=== PATIENT | female | born 1950 | race Caucasian/White ===

== ENCOUNTER 2020-07-21 23:56 | Inpatient (IN) | payer OTHER ==
[~2020-07-21] VITALS: Ht 165.1 cm; Wt 59.9 kg
--- NOTE | ~2020-07-21 | EMS ---
[address] [address] EMS Patient Care Report Name: ROZINA DSOUZA Room #: 216-P ADM IN M.R.#: [id number] Admission: 07/22/20 Attend Phys: Aj Mills MD Discharge: Date of : 46 Report #: [id number] THIS REPORT FOR: //name// Report Transmitted: 07/23/2020 15:30 EMS Care Summary [facility] MED-ACT Incident [id number] @ 07/21/2020 22:58 Incident Location [id number] [place] [address] Patient ROZINA DSOUZA Female, 70 Years 1950 Patient Address [id number] [place] [address] Patient History Other,Dementia, Patient Allergies No known allergies, Patient Medications Allopurinol, Lisinopril, Hydrochlorothiazide (Hctz), Naproxen, Simvastatin, Chief Complaint "She's not acting like herself." Disposition Transported No Lights/[place] Dispatch Reason Psychiatric Problem/Abnormal Behavior/Suicide Attempt Transported To [facility] Narrative Upon arrival to scene we find pt lying in bed showing no outward signs of distress with no obvious ABC deficits. Pt's family reports that, approximately one hour prior to EMS call, pt began exhibiting erratic behavior and not responding to them. Family reports that pt had been "trying to climb the [address] [address] EMS Patient Care Report Name: ROZINA DSOUZA Room #: 216-P ADM IN M.R.#: [id number] Admission: 07/22/20 Attend Phys: Aj Mills MD Discharge: Date of : 46 Report #: [id number] [place]", "taking her clothes off" and "getting in and out of the shower". Per family, pt has hx brain aneurysm 12 years prior but has not had significant residual effects. Family reports that pt is believed to have taken "Zzzquil" to sleep but that this was not abnormal for her and they deny all further substance use. Pt was reportedly last seen acting appropriately before heading to bed between [id number] tonight. Family denies any known contact with COVID-19 positive individuals. Pt is unable to answer questions and does not track EMS when spoken to. Pt is placed in 4 point restraints due to the erratic and agitated behavior that she is displaying. Pt repeatedly tries to sit up, roll off the cot, remove clothing and blankets, and kick/pull away from EMS providers. Pt condition monitored throughout transport without change. [facility] notified via [employer] with information only. Pt transported to [facility] as base hospital. Pt taken to ER room 12 and assisted to bed via tarp drag. Full verbal report given to staff. Receiving facility signature obtained due to altered mental status. Pt's purse left in ER room with pt. Initial Vitals @23:43P: 116,R: 18,BP: 127/92,Pain: 0/10,GCS: 9,SpO2: 98,Revised Trauma: 11, @23:31P: 113,R: 18,BP: 133/78,GCS: 9,SpO2: 98,Revised Trauma: 11,NM Suspected: false @23:12P: 112,R: 18,BP: 131/77,GCS: 9,Temp: 98.4F,Glucose: 166,SpO2: 98,Revised Trauma: 11, Assessments @23:10MENTAL:Combative,Unresponsive,SKIN:HEENT:LUNG SOUNDS:ABDOMEN:PELVIS//GI:No Abnormalities,EXTREMITIES:Left Arm: No Abnormalities,Right Arm: No Abnormalities,Left Leg: No Abnormalities,Right Leg: No Abnormalities,PULSE:Radial: 2+ Normal,NEURO:Other, Impression Altered Mental Status Procedures @23:25Patient RestraintResponse: UnchangedSucceeded Timeline 22:56,Call Received 22:56,Psap Call 22:58,Dispatched 22:58,En Route 23:08,On Scene 23:10,At Patient [address] [address] EMS Patient Care Report Name: ROZINA DSOUZA Room #: 216-P ADM IN M.R.#: [id number] Admission: 07/22/20 Attend Phys: Aj Mills MD Discharge: Date of : 46 Report #: [id number] 23:12,BP: 131/77 M,PULSE: 112,RR: 18 R,SPO2: 98 Ox,ETCO2: ,B,PAIN: ,GCS: 9, 23:25,Patient Restraint,Response: UnchangedSucceeded, 23:31,BP: 133/78 M,PULSE: 113,RR: 18 R,SPO2: 98 Ox,ETCO2: ,BG: ,PAIN: ,GCS: 9, 23:32,Depart Scene 23:43,BP: 127/92 M,PULSE: 116,RR: 18 R,SPO2: 98 Ox,ETCO2: ,BG: ,PAIN: 0,GCS: 9, 23:47,At Destination 00:23,Call Closed Disclaimer v1.1 Copyright 2020 [employer] This EMS Care Summary contains data elements from the applicable legal record (which may be displayed differently). It is designed to provide pertinent information for the following purposes: continuity of care, clinical quality, and state data reporting. The complete legal record is available to ED staff and administrators of the receiving hospital in [employer]'s Patient Tracker. All data is provided "as is."
--- NOTE | ~2020-07-21 | EMS ---
[facility] [address] [place] [address] EMS Patient Care Report Name: ROZINA DSOUZA Room #: 170-12 ADM IN M.R.#: [id number] Admission: 07/22/20 Attend Phys: Jas Bauman MD Discharge: Date of : 46 Report #: [id number] THIS REPORT FOR: //name// Report Transmitted: 07/22/2020 05:32 EMS Care Summary [facility] MED-ACT Incident [id number] @ 07/21/2020 22:58 Incident Location [id number] [place] [address] Patient ROZINA DSOUZA Female, 70 Years 1950 Patient Address [id number] [place] [address] Patient History Other,Dementia, Patient Allergies No known allergies, Patient Medications Allopurinol, Lisinopril, Hydrochlorothiazide (Hctz), Naproxen, Simvastatin, Chief Complaint "She's not acting like herself." Disposition Transported No Lights/[place] Dis[place] Reason Psychiatric Problem/Abnormal Behavior/Suicide Attempt Transported To [facility] Narrative Upon arrival to scene we find pt lying in bed showing no outward signs of distress with no obvious ABC deficits. Pt's family reports that, approximately one hour prior to EMS call, pt began exhibiting erratic behavior and not responding to them. Family reports that pt had been "trying to climb the [facility] [address] [place] [address] EMS Patient Care Report Name: ROZINA DSOUZA Room #: 170-12 ADM IN M.R.#: [id number] Admission: 07/22/20 Attend Phys: Jas Bauman MD Discharge: Date of : 46 Report #: [id number] [place]", "taking her clothes off" and "getting in and out of the shower". Per family, pt has hx brain aneurysm 12 years prior but has not had significant residual effects. Family reports that pt is believed to have taken "Zzzquil" to sleep but that this was not abnormal for her and they deny all further substance use. Pt was reportedly last seen acting appropriately before heading to bed between 0156-7311 tonight. Family denies any known contact with COVID-19 positive individuals. Pt is unable to answer questions and does not track EMS when spoken to. Pt is placed in 4 point restraints due to the erratic and agitated behavior that she is displaying. Pt repeatedly tries to sit up, roll off the cot, remove clothing and blankets, and kick/pull away from EMS providers. Pt condition monitored throughout transport without change. [facility] notified via [employer] with information only. Pt transported to [facility] as base hospital. Pt taken to ER room 12 and assisted to bed via tarp drag. Full verbal report given to staff. Receiving facility signature obtained due to altered mental status. Pt's purse left in ER room with pt. Initial Vitals @23:43P: 116,R: 18,BP: 127/92,Pain: 0/10,GCS: 9,SpO2: 98,Revised Trauma: 11, @23:31P: 113,R: 18,BP: 133/78,GCS: 9,SpO2: 98,Revised Trauma: 11,MN Suspected: false @23:12P: 112,R: 18,BP: 131/77,GCS: 9,Temp: 98.4F,Glucose: 166,SpO2: 98,Revised Trauma: 11, Assessments @23:10MENTAL:Combative,Unresponsive,SKIN:HEENT:LUNG SOUNDS:ABDOMEN:PELVIS//GI:No Abnormalities,EXTREMITIES:Left Arm: No Abnormalities,Right Arm: No Abnormalities,Left Leg: No Abnormalities,Right Leg: No Abnormalities,PULSE:Radial: 2+ Normal,NEURO:Other, Impression Altered Mental Status Timeline 22:56,Call Received 22:56,Psap Call 22:58,Dispatched 22:58,En Route 23:08,On Scene 23:10,At Patient 23:12,BP: 131/77 M,PULSE: 112,RR: 18 R,SPO2: 98 Ox,ETCO2: ,B,PAIN: ,GCS: 9, [address] [address] EMS Patient Care Report Name: MEETROZINA Room #: 170- ADM IN M.R.#: [id number] Admission: 07/22/20 Attend Phys: Jas Bauman MD Discharge: Date of : 46 Report #: [id number] 23:31,BP: 133/78 M,PULSE: 113,RR: 18 R,SPO2: 98 Ox,ETCO2: ,BG: ,PAIN: ,GCS: 9, 23:32,Depart Scene 23:43,BP: 127/92 M,PULSE: 116,RR: 18 R,SPO2: 98 Ox,ETCO2: ,BG: ,PAIN: 0,GCS: 9, 23:47,At Destination 00:23,Call Closed Disclaimer v1.1 Copyright 2020 [employer] This EMS Care Summary contains data elements from the applicable legal record (which may be displayed differently). It is designed to provide pertinent information for the following purposes: continuity of care, clinical quality, and state data reporting. The complete legal record is available to ED staff and administrators of the receiving hospital in [employer]'s Patient Tracker. All data is provided "as is."
[2020-07-21 23:59] VITALS: BP 149/80
[2020-07-22 01:25] LABS: ABSOLUTE NEUTROPHILS 6.5 thou/uL (1.4-8.2); BASOPHILS 0.8 % (0.0-2.0); HEMOGLOBIN 12.1 gm/dL (12.0-15.0); LYMPHOCYTES 11.2 % (24.0-44.0); MCH 32.3 pg (26.0-34.0); MCHC 32.7 g/dL (28.0-37.0); MONOCYTES 10.3 % (1.0-8.0); PLATELET COUNT 348 thou/uL (150-400); POLYS 75.7 % (36.0-66.0); RBC 3.74 mil/uL (4.20-5.00); WBC 8.6 thou/uL (4.0-11.0)
[2020-07-22 01:27] LABS: URINE BILIRUBIN NEGATIVE (Negative); URINE BLOOD NEGATIVE (Negative); URINE CLARITY CLEAR; URINE COLOR YELLOW; URINE GLUCOSE-RANDOM* NEGATIVE (Negative); URINE KETONES NEGATIVE (Negative); URINE LEUKOCYTES-REFLEX NEGATIVE (Negative); URINE NITRITE-REFLEX NEGATIVE (Negative); URINE PROTEIN (DIPSTICK) NEGATIVE (Negative); URINE UROBILINOGEN 0.2 E.U./dl (0.2-1.0)
[2020-07-22 01:31] LABS: ANION GAP 18 mmol/L (7-16); BUN 13 mg/dL (7-18); CALCIUM 8.5 mg/dL (8.5-10.1); CHLORIDE 91 mmol/L (98-107); CO2 16 mmol/L (21-32); GLUCOSE 114 mg/dL (74-106); POTASSIUM 3.4 mmol/L (3.5-5.1); SODIUM 125 mmol/L (136-145)
[2020-07-22 01:36] LABS: ALBUMIN 3.6 g/dL (3.4-5.0); AMP/METHAMP Negative (Negative); BARBITURATES Negative (Negative); BENZODIAZEPINES Negative (Negative); COCAINE Negative (Negative); DIRECT BILIRUBIN < 0.1 mg/dL (<0.1-0.2); METHADONE Negative (Negative); OPIATES Negative (Negative); PCP Negative (Negative); SALICYLATE < 2.8 mg/dL (2.8-20.0); SGOT 25 U/L (15-37); SGPT 19 U/L (30-65); TOTAL BILIRUBIN 0.4 mg/dL (0.2-1.0); TOTAL PROTEIN 6.9 g/dL (6.4-8.2)
[2020-07-22] MEDS ORDERED: NAPROSYN500 MG PO (02:17)
[2020-07-22] MEDS ORDERED: LISINOPRIL40 MG PO (02:17)
[2020-07-22] MEDS ORDERED: ZOCOR 20 MG TAB20 M1 PO (02:17)
[2020-07-22] MEDS ORDERED: ALLOPURINOL 10100 M1 PO (02:17)
[2020-07-22] MEDS ORDERED: ECOTRIN325 MG PO (02:18)
[2020-07-22] MEDS ORDERED: HYDROCHLOROTHIA25 M2 PO (02:18)
[2020-07-22] MEDS ORDERED: METOPROLOL TAR100 MG PO (02:18)
[2020-07-22 08:10] VITALS: BP 129/77
[2020-07-22 13:00] LABS: TSH 1.911 uIU/mL (0.358-3.740)
--- NOTE | 2020-07-22 15:58 | EKG ---
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
[2020-07-22 21:19] VITALS: BP 152/95
--- NOTE | 2020-07-22 21:19 | NUR ---
SOUND HEARD FROM PATIENTS ROOOM, THIS NURSE GOES INTO ROOM AND PATIENT IS ON THE FOOR. HAD CRAWLED OUT OF TOP OF BED, HITTING FOREHEAD. SMALL HEMATOMA TO LEFT FOREHEAD. WILL NOTIFY
--- NOTE | 2020-07-22 21:35 | NUR ---
PT'S MATHEW CALLED AFTER FALL.
[2020-07-22 23:00] VITALS: BP 125/80
[2020-07-23] VITALS: BP 137/87
--- NOTE | 2020-07-23 01:29 | NUR ---
PATIENT TRANSFERRED FROM ER TO AT APPROXIMATELY 0015. PATIENT CONFUSED AND ALERT ONLY TO SELF. PATIENT UNABLE TO ANSWER QUESTIONS FOR ADMISSION HX AND ASSESSMENT APPROPRIATELY. NEURO CONSULT WAS CALLED ORDERED. PATIENT REMAINS ON SEIZURE PRECAUTIONS. WILL CONTINUE TO MONITOR.
[2020-07-23 04:30] VITALS: BP 141/94
[2020-07-23 05:59] LABS: HEMATOCRIT 39.1 % (37.0-47.0); HEMOGLOBIN 13.1 gm/dL (12.0-15.0); MCH 32.7 pg (26.0-34.0); MCHC 33.5 g/dL (28.0-37.0); MCV 97.5 fL (80.0-100.0); RBC 4.01 mil/uL (4.20-5.00); RDW 14.2 % (10.5-14.5); WBC 8.8 thou/uL (4.0-11.0)
[2020-07-23 06:06] LABS: CREATININE 0.6 mg/dL (0.6-1.0); MAGNESIUM 1.8 mg/dL (1.8-2.4); POTASSIUM 3.1 mmol/L (3.5-5.1)
[2020-07-23 08:00] VITALS: BP 147/88
[2020-07-23 11:30] VITALS: BP 137/85
--- NOTE | 2020-07-23 16:11 | NUR ---
CANNOT REMEMBER FROM MOMENT TO MOMENT FALL RISK PROCEDURES, CONTINUES TO POP OUT OF BED WITHOUT CALLING. FALL PRECAUTIONS IN PLACE. SR/ST PER TELE. WILL CONTINUE TO FOLLOW CLOSELY.
[2020-07-23 16:45] VITALS: BP 136/71
--- NOTE | 2020-07-23 17:51 | NUR ---
Case opened to follow for dc planning. Bobbin Loose End Finder visited with the pt at bedside. Cm role introduced. Pt reports she is from [place], [place] and is here staying with her dtr Ellyn as her spouse is in an inpt ethol tx program in [place]. She is tearful when talking about him. She reports being indep with gait and adl's and notes previous hx of CVA/seizure. She is able to acknowledge her thinking is fuzzy and she is having trouble remembering things. Permission rec'd to contact dtr Ellyn to assist with any dc planning needs. Therapy evals are pending and nuero workup in progress. Her pcp is Dr. Mj Rodriguez in [facility] ([place]). Will follow.
[2020-07-23 20:30] VITALS: BP 127/74
--- NOTE | 2020-07-24 04:52 | NUR ---
ASSUMED CARE 1900. PT CONFUSED AND IMPULSSIVE. DENIES PAIN. DENIES CHEST PAIN. NAUSEA OR VOMITING. NO SEIZURES OVERNIGHT. PT CONSTANTLY GETTING OUT OF BED, REQUESTING TO SEE HER . PULLED OUT ONE IV. REMAINS SR ON THE MONITOR. NO FURTHER CONCERNS. WILL CONTINUE TO FOLLOW POC.
[2020-07-24 04:59] VITALS: BP 144/67
[2020-07-24 06:04] LABS: CALCIUM 8.9 mg/dL (8.5-10.1); CREATININE 0.6 mg/dL (0.6-1.0); MAGNESIUM 1.9 mg/dL (1.8-2.4); POTASSIUM 3.2 mmol/L (3.5-5.1)
[2020-07-24 06:11] LABS: HEMATOCRIT 34.4 % (37.0-47.0); HEMOGLOBIN 11.5 gm/dL (12.0-15.0); MCH 32.7 pg (26.0-34.0); MCHC 33.4 g/dL (28.0-37.0); RBC 3.5 mil/uL (4.20-5.00); RDW 14.2 % (10.5-14.5); WBC 9.7 thou/uL (4.0-11.0)
[2020-07-24 08:25] VITALS: BP 128/79
--- NOTE | 2020-07-24 08:46 | NUR ---
ASSUMED CARE OF PT AT SHIFT CHANGE,REPEATED ATTEMPTS TO GET OOB WITHOUT CALLING OR RINGING HOLLOWAY. ALERT TO SELF, FAMILY. KIND AND SWEET. W/GENTLE PERSUASION SHE RETURNED TO BED, EATING NOW, THANKFUL FOR CARES, VERY FORGETFUL, WILL MONITOR FREQUENTLY MUCH ABLE, PT STATES SHES FROM [place]. SEE SEPARATE INTERVENTIONS FOR ASSESSMENTS. BRUISING SCATTERED ALL OVER FACE, REPORTS OF REMOVING IV LAST SHIFT, NEW ONE STARTED AND WRAPPED. ENCOURAGED HER TO USE CALL LIGHT FOR ANY NEEDS AND SHE RINGS HER HOLLOWAY MOST OF THE TIME. BED ALARM ENGAGED.
--- NOTE | 2020-07-24 11:38 | EKG ---
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1950 Requested By: Svetlana Saleh Order Number: [id number] MD: Toñito Salvador Measurements Intervals [place] Rate: 104 P: 79 [place]: 143 QRS: 26 QRSD: 82 T: 1 QT: 339 QTc: 446 Interpretive Statements Sinus tachycardia Nonspecific T abnormalities, anterior leads Compared to ECG 07/22/2020 00:39:42 T-wave abnormality now present Electronically Signed On 07-24-2020 11:38:30 CDT by Toñito Salvador [email or web address] <ELECTRONICALLY SIGNED> By: Toñito Salvador MD, FAC 07/24/20 1138 1022 1022 Toñito Salvador MD, [facility] /EPI
[2020-07-24 12:15] VITALS: BP 124/70
--- NOTE | 2020-07-24 12:44 | NUR ---
MRI? DAUGHTER VISITING AND MENTIONED NEUROLOGY SAID SHE WOULD GET AN MRI OF HER HEAD
--- NOTE | 2020-07-24 13:55 | 2DMMODE ---
[address] [address] 2 D/M-MODE ECHOCARDIOGRAM Name: ROZINA DSOUZA Room #: 216-P ADM IN M.R.#: [id number] Admission: 07/22/20 Attend Phys: Aj Mills MD Discharge: Date of : 46 Report #: [id number] THIS REPORT FOR: cc: ALVARADO HUNTER MD Physician not on staff Toñito Salvador MD [facility] ~ APPROVED REPORT Study performed: 07/24/2020 11:49:25 EXAM: Comprehensive 2D, Doppler, and color-flow Echocardiogram Patient Location: Bedside Room #: 216 Status: routine BSA: 1.62 HR: 93 bpm BP: 128/79 mmHg Rhythm: NSR Other Information Study Quality: Technically DifficultTechnically Limited Technically limited study due to inability to position patient. Indications Tachycardia Hypertension/HDD 2D Dimensions IVC: 15.00 mm Tricuspid Valve PA Pressure: 27.00 mmHg Left Ventricle The left ventricle is normal size. There is normal LV segmental wall motion. There is normal left ventricular wall thickness. The overall left ventricular systolic function appears normal. The left ventricular ejection fraction is within the normal range. LVEF is 55-60%. This study is not technically sufficient to allow evaluation of the LV diastolic function. Right Ventricle The right ventricle is normal size. The right ventricular systolic [address] [place] [address] 2 D/M-MODE ECHOCARDIOGRAM Name: ROZINA DSOUZA Room #: 216-P ADM IN M.R.#: [id number] Admission: 07/22/20 Attend Phys: Aj Mills, Discharge: Date of : 46 Report #: [id number] function is normal. Atria The left atrium size is normal. The right atrium size is normal. Aortic Valve The aortic valve is normal in structure. No aortic regurgitation is present. There is no aortic valvular stenosis. Mitral Valve The mitral valve is normal in structure. Trace mitral regurgitation. No evidence of mitral valve stenosis. Tricuspid Valve The tricuspid valve is normal in structure. There is trace tricuspid regurgitation. Estimated PAP 27 mmHg. There is no pulmonary hypertension. Pulmonic Valve The pulmonary valve is normal in structure. There is no pulmonic valvular regurgitation. Great Vessels The aortic root is normal in size. IVC is normal in size and collapses >50% with inspiration. Pericardium There is no pericardial effusion. <Conclusion> Normal left ventricular size, wall thickness and systolic function, ejection fraction estimated 55-60% No evidence of segmental wall motion normality Normal right as well as left atrial size Trace of mitral valve insufficiency Trace of tricuspid valve insufficiency with a PA pressure systolic estimated at 27 mmHg No pericardial effusion <ELECTRONICALLY SIGNED> By: Toñito Salvador MD, [facility] 07/24/20 1354 1354 1354 Toñito Salvador MD, FACC /INF
[2020-07-24 16:25] VITALS: BP 120/62
--- NOTE | 2020-07-24 17:39 | NUR ---
Attempted to reach dtr to verify pt's dc plan. Message left. Dtr was here early and indicated to staff the pt will likely need to live with her keno terminal operator to provide needed supervision. MRI pending per neuro. Pt confused and unable to remember saftey instructions per unit staff. PT/OT seeing her and she is able to gait with sba due to balance issues. Pt may be a good candidate for outpt therapy or HH pending her progress. DC timeframe uncertain. She remains on seizure precautions. Will follow.
[2020-07-24 20:20] VITALS: BP 121/60; BP 135/59
--- NOTE | 2020-07-25 02:01 | NUR ---
PT REMAINS DISORIENTED OVERNIGHT. IMPUSSIVE GETTING OUT OF BED OFTEN. DENIES PAIN. VOIDING TO BATHROOM AND BOTH INCONTINENT SOMETIMES. REORIENTED PT WITH EACH INTERACTION. NPO SEIZURES OVERNIGHT. WILL CONTINUE TO MONITOR and FOLLOW POC.
[2020-07-25 04:45] VITALS: BP 134/70
[2020-07-25 04:56] LABS: HEMOGLOBIN 11.3 gm/dL (12.0-15.0); MCH 32.6 pg (26.0-34.0); MCHC 33.3 g/dL (28.0-37.0); MCV 98.1 fL (80.0-100.0); RBC 3.47 mil/uL (4.20-5.00); RDW 14.5 % (10.5-14.5); WBC 8.2 thou/uL (4.0-11.0)
[2020-07-25 05:07] LABS: CALCIUM 8.6 mg/dL (8.5-10.1); CREATININE 0.6 mg/dL (0.6-1.0); MAGNESIUM 1.8 mg/dL (1.8-2.4); POTASSIUM 3.5 mmol/L (3.5-5.1)
[2020-07-25 08:45] VITALS: BP 108/54
[2020-07-25 10:09] LABS: CHOLESTEROL 142 mg/dL (<200); HDL CHOLESTEROL 69 mg/dL (>40); LDL CHOLESTEROL 63 mg/dL (<100); TC:HDL 2.1 Ratio (Not establshd); TRIGLYCERIDE 51 mg/dL (<150); VLDL 10 mg/dL (<40)
[2020-07-25 12:05] VITALS: BP 116/64
--- NOTE | 2020-07-25 15:04 | NUR ---
CONFUSION PERSISTS. IMPULSIVE. FALL PRECAUTIONS IN PLACE, CLOSE TO NURSES' STATION. SR PER TELE AT REST; ST WITH ACTIVITY. WILL CONTINUE TO FOLLOW CLOSELY.
[2020-07-25 16:10] VITALS: BP 122/65
[2020-07-25 20:20] VITALS: BP 120/59
[2020-07-26 04:38] LABS: HEMOGLOBIN 10.9 gm/dL (12.0-15.0); MCH 32.2 pg (26.0-34.0); MCHC 32.9 g/dL (28.0-37.0); MCV 97.7 fL (80.0-100.0); RBC 3.38 mil/uL (4.20-5.00); RDW 14.3 % (10.5-14.5); WBC 6.4 thou/uL (4.0-11.0)
[2020-07-26 04:46] LABS: CALCIUM 8.5 mg/dL (8.5-10.1); CREATININE 0.6 mg/dL (0.6-1.0); MAGNESIUM 1.8 mg/dL (1.8-2.4); POTASSIUM 3.5 mmol/L (3.5-5.1)
[2020-07-26 05:50] VITALS: BP 110/57
--- NOTE | 2020-07-26 07:24 | NUR ---
progress pt continues to be confused and impulsive but pleasant and cooperative, voiding cloudy yellow urine in bsc, up with sba seems unsteady at times. able to swallow pills whole with thin liquids skin c/d/i no areas of breakdown noted able to perform own cares with supervision for safety. continue to monitor.
[2020-07-26 08:30] VITALS: BP 128/63
[2020-07-26 12:40] VITALS: BP 114/64
[2020-07-26 16:15] VITALS: BP 140/69
--- NOTE | 2020-07-26 18:11 | NUR ---
ASSESSMENT CHARTED - MEDS PER DEC - NO CO'S OF PAIN OR NASUEA. GAGE DIET AND FLUIDS. PT HAS BEEN CONTINENT THIS SHIFT REQUESTING TO GO TO THE RESTROOM -UA NEEDED SECONADRY TO FEVER RUN YESTERDAY - PT MISSED THE HAT - BLLOD CULTURES AND CHEST XRAY WHERE DONE. IV FLUIDS D/C'D. PT UP TO THE CHAIR AFTER LUNCH -HAS DONE WELL - IF SHE ATTEMPTS TO GET UP SHE SITE DOWN AGAIN THE ALARM TELLS HER TO. SHE WAS CONFUSED THIS AM WAS A LITTLE MORE ORIENTED THIS AFTERNOON - ABLE TO TELL ME YEAR AND PRESIDENT. ASKED WHEN SHE WAS GOING TO BE ABLE TO GO. DAUGHTER CALLED AND STATED THAT IS NOT DOING WELL IN THE HOSPITAL AND IS EMINENT - SHE WISHED TO GET MOTHER BACK HOME TO BE WITH HER . MADE AWARE OF THIS DUE TO FEVER THOUGH SHE WISHED TO KEEP HER ANOTHER TO DAY. PT WITH LOW GRADE TEMP OF 37.5 AT LUNCH TIME. NO CO'S AT THE PRESENT TIME - REAMINS UP IN THE CHAIR STATES COMFORTABLE.
[2020-07-26 20:43] VITALS: BP 143/73
[2020-07-27 03:22] VITALS: BP 139/75
[2020-07-27 03:54] LABS: URINE BILIRUBIN NEGATIVE (Negative); URINE BLOOD 2+ (Negative); URINE CLARITY CLEAR; URINE COLOR YELLOW; URINE GLUCOSE-RANDOM* NEGATIVE (Negative); URINE KETONES NEGATIVE (Negative); URINE PROTEIN (DIPSTICK) NEGATIVE (Negative); URINE UROBILINOGEN 0.2 E.U./dl (0.2-1.0)
[2020-07-27 03:55] LABS: URINE LEUKOCYTES-REFLEX 1+ (Negative); URINE NITRITE-REFLEX POSITIVE (Negative)
[2020-07-27 04:17] LABS: CASTS None Seen /LPF (None Seen); CRYSTALS None Seen /LPF (None Seen); MUCUS None Seen strn/LPF (None Seen); SQUAMOUS None Seen /LPF (0-3); URINE RBC 0-2 Rare /HPF (0-2); URINE WBC-REFLEX 6-15 Few /HPF (0-5)
--- NOTE | 2020-07-27 07:42 | NUR ---
PT SLEEPING ON AND OFF, ONLY ORIENTED TO SELF, FREQUENT ATTEMPTS TO GET OUT OF BED BY MOVING TO BOTTOM OF BED, BED ALARM ON. PT DID C/O OF LT HIP PAIN UPON GETTING INTO BED,AND PAIN ACROSS THIGH. BRUISING NOTED IN LT HIP AREA, WILL WALK ON LEG, DOES LOOK LIKE PT NOT FULL WEIGHT BEARING ON IT. NOTIFIED CARPENTER FOREMAN AND XRAY ORDERED FOR TODAY. MONITOR SR. VOIDED -UA SENT TO LAB. SEE [facility] FOR ASSESMENT.
[2020-07-27 09:15] VITALS: BP 138/75
[2020-07-27 12:00] VITALS: BP 137/71
[2020-07-27 15:20] VITALS: BP 137/61
--- NOTE | 2020-07-27 17:25 | NUR ---
Spoke with dtr Ellyn. She reports her father is in [place] admitted to hospital. He had a peg tube placed. Her plan is to move parents to [facility] in [facility]. She reports assisted living offered. They used to live there for many years and friends in area. Called [facility] Vanesa Borges x2 today and left message with admission. SP with dtr who gave casemgt administrators fax for referral. Faxed referral packet for review.
[2020-07-27 20:15] VITALS: BP 135/64
[2020-07-28 04:45] VITALS: BP 150/75
--- NOTE | 2020-07-28 05:54 | NUR ---
CARE ASSUMED 1900. PT IMPULSIVE, AND CONFUSED. EASY TO REORIENT BACK TO BED. PT ABLE TO MAKE NEEDS KNOWN. DENIES PAIN. VITALS STABLE. SR ON THE MONITOR. NO EVENTS OVERNIGHT. ALL ASSESSMENTS DOCUMENTED. WILL CONTINUE TO MONITOR AND FOLLOW POC.
[2020-07-28 08:15] VITALS: BP 153/93
[2020-07-28 11:45] VITALS: BP 145/73
[2020-07-28] MEDS ORDERED: LISINOPRIL40 MG PO (12:32)
[2020-07-28] MEDS ORDERED: METOPROLOL TART25 MG PO (12:32)
[2020-07-28] MEDS ORDERED: KEPPRA 500 MG500 M1 PO (12:32)
[2020-07-28] MEDS ORDERED: ARICEPT10 M1 PO (12:32)
[2020-07-28] MEDS ORDERED: KEFLEX500 M1 PO (12:33)
--- NOTE | 2020-07-28 15:20 | NUR ---
PT GOT OOB ON HER OWN. BED ALARM SOUNDED. WALKED PT TO BR. PT CONVERSING PER HER USUAL. PT SAT DOWN ON COMMODE AND BECAME AFONIC AND NON RESONSIVE JUST STARING INTO SPACE. RAT TEAM CALLED. CT HEAD DONE, DR. MARGAUX RAMOS. EKG DONE. TWO NEW IVS PLACED. PT WOKE UP AT 20 MINUTES LATER AND WAS BACK TO BASELINE. MOD NIH DONE. ZERO. CN 3-[address] FARRAR INFORMED. PT WAS GETTING DRESSED TO GO HOME WITH THIS RN WHEN OCCURRED. TRANSFER CANCELD. DR. TODD ALSO INFORMED. LAB DRAWN GLUCOSE 84 PT DAUGHTER UPDATED AND IS ON HER WAY.
[2020-07-28 16:49] VITALS: BP 169/94
[2020-07-28 16:50] VITALS: BP 157/91
--- NOTE | 2020-07-28 16:51 | NUR ---
Tenative plan to discharge today. Dtr hopes to flower buncher or picker patient and transport in am to [facility] assisted living [facility] in [place] . Have spoken with Vanesa in admissions, she did not rec referral packet faxed yesterday. Refaxed, she reports too small print. [facility] was still avail this afternoon and able to scan and email casemgt. Emailed vanesa in admissions. She was reviewing. Dtr reports she hopes to retrieve medications at [facility]. Take patient home this evening and drive in am. Rec dc orders. took prescriptions to pharmacy at [facility]. Awaited [facility] to review referral and alert if can accept. They have a private room where her father and patient are able to quartine together. Patient this afternoon had a seizure. DC cancelled RN notified dtr. Arcadi[facility]gt left message with admissions at [facility].
[2020-07-28 17:38] LABS: CALCIUM 8.8 mg/dL (8.5-10.1); CREATININE 0.7 mg/dL (0.6-1.0); POTASSIUM 3.7 mmol/L (3.5-5.1)
[2020-07-28 19:50] VITALS: BP 155/79
[2020-07-29] VITALS (24 sets, daily range): BP systolic 96–162; BP diastolic 58–89
--- NOTE | 2020-07-29 07:32 | EKG ---
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1950 Requested By: Naveed Hernandez Order Number: [id number] MD: Toñito Salvador Measurements Intervals [place] Rate: 82 P: 70 [place]: 130 QRS: 44 QRSD: 93 T: 31 QT: 380 QTc: 444 Interpretive Statements Sinus rhythm Probable left atrial enlargement Borderline low voltage, extremity leads Abnormal T, consider ischemia, anterior leads Compared to ECG 07/24/2020 10:22:20 Possible ischemia now present Sinus tachycardia no longer present T-wave abnormality still present Electronically Signed On 07-29-2020 7:31:52 CDT by Toñito Salvador [email or web address] <ELECTRONICALLY SIGNED> By: Toñito Salvador MD, FACC 07/29/20 0731 1540 1540 Toñito Salvador MD, FAC /EPI
--- NOTE | 2020-07-29 09:46 | NUR ---
ASSUME CARE 1899. PT/VITALS STABLE. PT A/O TO PERSON AND TIME BUT NOT SITUATION AND PLACE. CONVERSES WELL AND TAKES PILLS WELL. 2129 NOTED PT STARING AND UNABLE TO TALK POR MOVE. STARING LASTED 20 MINUTES AND THEN PT WAS BACK TO NORMAL., SPEECK A BIT SLURRED FOR ABOUT A MINUTE AND THN SHE WAS BACK TALKING WELL AND TALKED ON THE PHONE WITH HER DAUGHTER WHO HAVE JUST BEEN BRIEFED ON THE HAPPENINGS BY NURSE. MEDS WERE GIVEN AND KEPPRA GIVEN WELL. SOMETIME ABOUT PAT 0100AM, CHECKED ON PT AND NOTED SHE HAD GONE IN TO [facility] AGAIN. UNSURE WHEN THIS STARTED. 2MG ATIVAN GIVEN AND PT BECAME VERY LETHARGIC AND SLEEPY. WOULD RESPOND TO HER NAME AND OPEN HER EYES VERY NOW AND THEN BUT GOES RIGHT BACK TO SLEEP. NEUROLOGY CALLED AND ORDERS FOR PHENYTOIN 500MG ICPB X 2 GIVEN. BP/HR /RESP MONITORED THROUGH THE MED ADMINISTRATION. BLOOD PRESSURE SUPPORTIVE. NO [facility] AGIS[facility] AND PT STILL VERY LETHARGIC. WILL CONTINUE TO MONITOR AND FOLLOW [facility] POC
--- NOTE | 2020-07-29 11:07 | NUR ---
Case discussed with the care team. Dc held yesterday due to seizure. Pt had seizure again overnight. Dtrs called this morning to discuss dc timeframe and plan. EEG this am and 48hr monitoring with neuro looking at possible MRA or CT angio as well. Dtrs hoping the pt can still be cleared to travel via car [place]. They will need a rwalker and scripts filled here [place]. Support provided.
--- NOTE | 2020-07-29 14:00 | NUR ---
Nutrition: pt admit with AMS, seizures. Seen for LOS. Was to D/C yesterday but has had 2 additional seizures since despite keppra. EEG this am with possible need for further neuro testing to r/o aneurysm. Intake is good, averaging 75% of meals on heart healthy diet. Pt enjoys the standard meals and is not interested in looking at alternative menu. Weight 125-133# over admit. Pt reports no weight changes she is aware of. Planned D/C soon. Low risk.
--- NOTE | 2020-07-29 17:59 | NUR ---
PT ALERT AND ORIENTED TO X2. WITH FORGETFULNESS. VSS. SEEN BY NEUROLOGIST. UP IN THE CHAIR THIS SHIFT. ON SEIZURE PRECAUTION. PARTICIATED IN PT/OT. NO CONCERNS AT THIS TIME.
[2020-07-30 03:50] VITALS: BP 110/65
[2020-07-30 08:02] VITALS: BP 121/66
[2020-07-30 11:22] VITALS: BP 95/52
[2020-07-30] MEDS ORDERED: DILANTIN100 MG PO (12:42)
[2020-07-30] MEDS ORDERED: LEVETIRACE100 MG/1 M PO (12:42)
[2020-07-30] MEDS ORDERED: MIRALAX17 GM PO (12:42)
[2020-07-30] MEDS ORDERED: PHENYTEK200 MG PO (15:21)
[2020-07-30 15:38] VITALS: BP 121/60
--- NOTE | 2020-07-30 16:48 | NUR ---
Pt dcing home with dtr Ellyn this evening with plans to admit to the SNF in [place] tomorrow. She plans to drive early am and all day with regular breaks for the pt. Rwalker issued per [facility] and scripts obtained from the attending. DC scripts sent to the [facility] and locked in med room to be sent with the pt at [place] this evening. [facility] Dtr aware that neuro recommended waiting a few days to travel but she wants the pt to get there [place] as her spouse was admitted to the SNF today from [place]. DC instructions, todays progress notes and therapy notes faxed to Vanesa at [facility]. She would like RN report called to . Covid results can be faxed tomorrow to .DC plan updated with all parties. [place] home with dtr today and admission to SNF tomorrow. Pt to go home with a rwalker, scripts from med room, and a chart copy.
--- NOTE | 2020-07-30 19:40 | NUR ---
ASSESSMENT CHARTED - MEDS PER DEC - NO CO'S OF PAIN OR NAUSEA. GAGE DIET AND FLUIDS. UP TO THE CHAIR FOR MEALS. PT AMBUALTED TO THE BATHROOM - CONTINENT THIS SHIFT - SEEN BY PHYS THERAPY AND DARRELL DAS PRIOVIDED TO PATIENT. PT DILATIN LEVEL 8.1 GIVEN 200 MGS ORDERED AND INCREASE IN EVENING DOSE. PT DISHCARGED THIS EVENING - REPORT CALL TO FACILITY THAT PATIENT WILL BE TRANSPORTED TO TOMORROW BY DAUGHTER. MEDICATIONS FILLED AT HOSPITAL PHARMACY AND GIVEN TO DAUGHTER - INSTRUCTION ON MEDICATION DOSES FOR TONIGHT AND THE AM GIVEN TO DAUGHTER - SHE STATED UNDERSTANDING OF INSTRUCTION GIVEN. IV AND MONITOR REMOVED PRIOR TO D/C. PT LEFT UNIT VIA WHEELCHAIR - HOME VIA PVT VEHICLE ACCOMPANIED BY DAUGHTER.
--- NOTE | 2020-07-31 17:50 | NUR ---
Call rec'd from dtr ellyn this am indicating pt's covid test came back positive last night. Ellyn notes she is overwhelmed and does not what to do next. Options reviewed. Ellyn and her sister have a call out to SNF in [place] to clarify their policy regarding covid. Lindsey Boss and Kirsten approved drive thru testing for pt/dtr this afternoon and results are pending. Dtr sent spouse and children to a hotel last night to quarentine them seperate. Private duty agency info provided to dtr to hire in support should she need to keep mom with her for 10-14 days of quarentine before driving to [place]. SNF referrals sent to [facility] and [facility] can not do any more wkend admits and will look at referral on monday. [facility] will have an answer in the am. Dtr updated throughout the day and emotional support provided. Lindsey to call dtr this evening with covid test results. Dtr instructed to bring pt back the ER is she has worsening symptoms or increased aggitation/behaviors. Will follow.
--- NOTE | 2020-08-05 12:03 | EEG ---
[facility] [place] [place] [address] ELECTROENCEPHALOGRAM Name: ROZINA DSOUZA Room #: 216-P [facility] IN M.R.#: [id number] Admission: 07/22/20 Attend Phys: Aj Mills MD Discharge: 07/30/20 Date of : 46 Report #: [id number] THIS REPORT FOR: //name// CC: Aj Mills [facility] Physician staff DATE OF SERVICE: 07/29/2020 This patient is being evaluated for the possibility of seizure. EEG was done by placing the electrode by standard 08/04/2020 system of electrode placement. Both referential and sequential montages were used for recording. Background activity in this patient's EEG is about 7 Hz and 30 microvolt. It is a poorly formed background activity. Photic stimulation is unremarkable. The patient became drowsy that is associated with bilateral slowing and vertex sharp waves. Throughout the record, no active epileptiform activity was noted. IMPRESSION: This patient's EEG is intermixed with theta range slowing on both sides. That is a nonspecific abnormality, which can occur with encephalopathy, effect of psychotropic medication, dementia, etc. No active epileptiform activity was noticed. Thank you very much for this referral. <ELECTRONICALLY SIGNED> By: Erick Navarro MD 08/05/20 1203 1412 1430 Erick Navarro MD /nt
--- NOTE | 2020-08-05 12:03 | EEG ---
[facility] [place] [address] ELECTROENCEPHALOGRAM Name: ROZINA DSOUZA Room #: 216-P [facility] IN M.R.#: [id number] Admission: 07/22/20 Attend Phys: Aj Mills MD Discharge: 07/30/20 Date of : 46 Report #: [id number] THIS REPORT FOR: //name// CC: Aj Mills [facility] Physician staff EEG was done by placing the electrode by standard 10-20 system of electrode placement. Both referential and sequential montages were used for recording. Background activity in this patient's EEG is about 7 Hz and 30 microvolts. Photic stimulation is unremarkable. No active epileptiform activity was noticed. EEG continued to be slow and poorly formed. IMPRESSION: This is an abnormal EEG because it is disorganized and poorly formed. That is a nonspecific abnormality, which can occur with dementia, encephalopathy, effect of psychotropic medications. No active epileptiform activity was noticed. Thank you very much for this referral. <ELECTRONICALLY SIGNED> By: Erick Navarro MD 08/05/20 1203 1058 1112 Erick Navarro MD /nt
--- NOTE | 2020-08-05 12:04 | HC ---
[facility] [place] [address] CONSULTATION Name: ROZINA DSOUZA Room #: 216-P [facility] IN M.R.#: [id number] Admission: 07/22/20 Attend Phys: Aj Mills MD Discharge: 07/30/20 Date of : 46 Report #: [id number] THIS REPORT FOR: cc: ALVARADO HUNTER MD Physician not on staff Erick Navarro MD ~ CC: Aj HUNTER Physician staff DATE OF SERVICE: 07/22/2020 HISTORY OF PRESENT ILLNESS: A 70-year-old female patient who is unable to provide any history at all. I talked to the nurses looking after this patient and got some history from there and some from the records. Subsequently, I was able to talk to the patient's daughter and she provided most of the history. The patient was living with her who was taking care of this patient. Then daughter brought her here and noticed that she had severe memory problems that was probably going on for some time. She said she did not realize it and realized when she moved here. She was admitted with further alteration in the mental status. Apparently after yesterday, she was at the baseline, then she had a tonic-clonic seizure. She became combative. She was postictal and she was brought here. She had known aneurysms, which ruptured long time ago. She has had a shunt put in and when did her memory started becoming bad is not clear. She follows up with her neurologist in [place], [place] that is where she was living. She got some Ativan before I saw her and she was pretty much out when I saw her. She does have a history of hypertension. REVIEW OF SYSTEMS: A 14-point review of system was carried out, but it indicates she was living with her and probably able to live with a lot of support from her, but from all indication, it looks like she had a pretty significant dementia. This was a relevant 14-point review of system, which I can get. PAST MEDICAL HISTORY: Positive for shunt placement. FAMILY HISTORY: Noncontributory. SOCIAL HISTORY: She has a very supporting daughter whom I talked to in detail and until now, she was living with her . It does not look like the patient drinks any alcohol as per history. PHYSICAL EXAMINATION: Pretty limited. She is lying there. She is not doing [facility] [address] [place] [address] CONSULTATION Name: ROZINA DSOUZA Room #: 216-P [facility] IN M.R.#: [id number] Admission: 07/22/20 Attend Phys: Aj Mills MD Discharge: 07/30/20 Date of : 46 Report #: [id number] anything. She won't even respond to the pain and she has no reflexes, but that is all the examination, which is possible. She does not appear to be in respiratory distress at the moment. Her blood pressure is 126/71 and pulse is 74. LABORATORY DATA: Indicated normal white count. Her sodium is low at 125, but she does not have any urinary tract infection. Her CT was reviewed. She has extensive atrophy and deep white matter ischemic changes in addition to her shunt. IMPRESSION AND PLAN: This patient most likely has a pretty significant dementia with her baseline that will correlate with the patient's CT scan finding. I think the aim should be to treat her hyponatremia. Her hyponatremia is not severe, but she has such an extensive atrophy on the brain and such an extensive deep white matter ischemic changes that this patient become symptomatic even with mild disturbances of sodium or other metabolic disturbances. Any other etiologies need to be excluded. I talked to the patient's daughter. I discussed their options with her. She is going to find out if her coils in the brain is compatible with the MRI. If it is, we can do an MRI and MRA. If not, we will do the CT angiogram of the head and neck. The patient with such an extensive atrophy and deep white matter ischemic changes, may not come back to normal after the sodium is corrected or it may take long time to come back. I will suggest continue Keppra because the chances of having seizure is high. She already got a dose and we will start her on a small dose of 500 mg p.o. b.i.d. She may or may not need Keppra for a long time because of dementia. I will check a TSH, vitamin B12 and sed rate, and HERNANDEZ because of extensive deep white matter ischemic changes in the brain. More than 50 minutes of time was spent taking care of this patient today and majority of the time was spent counseling and coordinating. <ELECTRONICALLY SIGNED> By: Erick Navarro MD 08/05/20 1204 1114 2238 Erick Navarro MD /nt
--- NOTE | 2020-08-07 13:49 | HC ---
[facility] [place] [address] CONSULTATION Name: ROZINA DSOUZA Room #: 216-P [facility] IN M.R.#: [id number] Admission: 07/22/20 Attend Phys: Aj Mills MD Discharge: 07/30/20 Date of : 46 Report #: [id number] THIS REPORT FOR: cc: ALVARADO HUNTER MD Physician not on staff Aftab Ellis MD ~ DATE OF SERVICE: 07/27/2020 HISTORY OF PRESENT ILLNESS: The patient is a 70-year-old white female who was noted to have some premorbid dementia, was living in [place] with her . He apparently is undergoing inpatient alcohol treatment in [place] and the patient has thus been staying with her daughter here in the [place] area for the past week. While at the daughter, she had been ambulatory, caring for herself when she had the onset of mental status changes. She had a tonic-clonic seizure. Had a fall with a scalp hematoma and had encephalopathy superimposed upon her premorbid dementia. She did at one point have some agitation. She also had hyponatremia with sodium down to 125. She has been followed by Neurology. She was given Ativan and Keppra. MRI revealed an old right frontal infarct and she has had prior history of a cerebral aneurysm, status post surgery back in 2006. The patient is noted to have an encephalopathy along with some head trauma, superimposed on prior dementia, nevertheless had been living in the community. She has been started on Aricept. Sodium has been improved after 138. She is continuing on IV antibiotics. We are seeing her in Rehabilitation Medicine consultation. PAST MEDICAL HISTORY: Includes the prior cerebral aneurysmal surgery, history of hypertension, hyperlipidemia, gout. MEDICATIONS: Please see the full medication listing. ALLERGIES: SULFA. SOCIAL HISTORY: Premorbidly had been staying with her daughter for the last week or so prior to admission. is in [place] apparently and then ETOH treatment program and apparently not doing well and to be getting a PEG tube. I am uncertain if the daughter works. There are 3 steps in. REVIEW OF SYSTEMS: No current complaints of chest pain, shortness of breath or abdominal discomfort. PHYSICAL EXAMINATION: GENERAL: A 70-year-old white female, in no obvious distress. The patient is alert. VITAL SIGNS: Last recorded temperature 97, pulse 89, respirations 18, blood pressure 138/75. HEENT: Revealed a left frontal hematoma. She also has an old scalp [facility] [address] [place] [address] CONSULTATION Name: ROZINA DSOUZA Room #: 216-P [facility] IN [facility].#: [id number] Admission: 07/22/20 Attend Phys: Aj Mills MD Discharge: 07/30/20 Date of : 46 Report #: [id number] abnormalities from her prior surgery, right occipital and parietal area. NEUROLOGIC: She is alert. She seems somewhat unsure of herself, but will follow basic 1 step commands. She has definite decreased short-term memory. Facies appeared symmetric. She has functional range of motion of both upper extremities. Strength is grade 4- to 4/5. DTRs are trace to 1. She has chronic degenerative changes of her hands. In her lower extremities, no focal calf swelling. Functional range of motion with strength grade 4-/5. DTRs are trace to 1. She has been standby assist for sit to stand. Gait has been min assist with the front-wheeled walker short distances. ASSESSMENT: A 70-year-old white female with the following problem list: 1. Toxic metabolic and post-seizure encephalopathy with head injury and superficial frontal scalp hematoma, superimposed on prior dementia, was thought to be mild in severity. 2. Hyponatremia. Sodium was 125 on admission. 3. New onset seizure disorder. 4. Prior history of cerebral aneurysm in 2006 with surgical intervention. 5. Hypertension. 6. Hyperlipidemia. 7. 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 PLAN: Therapy evaluations continue. We would like to ensure that the family could provide 24-hour supervision before approving her for an acute in-hospital inpatient rehabilitation stay. At this point, we will follow along with you regarding her rehab therapy needs. <ELECTRONICALLY SIGNED> By: Aftab Ellis MD 08/07/20 1349 1345 0238 Aftab Ellis MD /[facility]
== END 2020-07-30 18:30 | DRG 177 ==
LOC: ER 23:56 → EROBS 07-22 02:41 → 2N 07-22 02:41 → EROBS 07-22 07:55 → 2N 07-22 23:55
PROVIDERS: Emergency Medicine; Hospitalist; Internal Medicine; Psychiatry & Neurology Neurology; Psychiatry & Neurology Neuromuscular Medicine; ADMIT Internal Medicine; ATTEND Internal Medicine
DX: U07.1 COVID-19 (principal); G92 Toxic encephalopathy; E87.1 Hypo-osmolality and hyponatremia; N39.0 Urinary tract infection, site not specified; G40.909 Epilepsy, unspecified, not intractable, without status epilepticus; I10 Essential (primary) hypertension; E78.5 Hyperlipidemia, unspecified; M10.9 Gout, unspecified; F03.90 Unspecified dementia, unspecified severity, without behavioral disturbance, psychotic disturbance, mood disturbance, and anxiety; I67.1 Cerebral aneurysm, nonruptured; E86.9 Volume depletion, unspecified; E87.6 Hypokalemia; S00.03XA Contusion of scalp, initial encounter; W18.39XA Other fall on same level, initial encounter; Z88.2 Allergy status to sulfonamides; Y93.89 Activity, other specified; Y92.89 Other specified places as the place of occurrence of the external cause; Y99.8 Other external cause status; S61.419A Laceration without foreign body of unspecified hand, initial encounter; S81.019A Laceration without foreign body, unspecified knee, initial encounter
CPT/HCPCS: 10081

== ENCOUNTER 2020-07-30 22:27 | Emergency (ER) | payer OTHER ==
[~2020-07-30] VITALS: Ht 142.2 cm; Wt 45.4 kg
[~2020-07-30 22:27] MED LIST: ALLOPURINOL 10100 M1 PO; ARICEPT10 M1 PO; DILANTIN100 MG PO; ECOTRIN325 MG PO; HYDROCHLOROTHIA25 M2 PO; KEFLEX500 M1 PO; KEPPRA 500 MG500 M1 PO; LEVETIRACE100 MG/1 M PO; LISINOPRIL40 MG PO; METOPROLOL TAR100 MG PO; METOPROLOL TART25 MG PO; MIRALAX17 GM PO; NAPROSYN500 MG PO; PHENYTEK200 MG PO; ZOCOR 20 MG TAB20 M1 PO
[2020-07-30 23:23] VITALS: BP 143/86
== END 2020-07-30 23:24 | disposition home or self-care (01) ==
LOC: ER 22:27
DX: U07.1 COVID-19 (principal); I10 Essential (primary) hypertension; E78.5 Hyperlipidemia, unspecified; Z79.899 Other long term (current) drug therapy; Z88.2 Allergy status to sulfonamides